=== PATIENT | male | born 1985 | race Caucasian/White ===

== ENCOUNTER 2020-03-04 16:44 | Emergency (ER) | payer SELFPAY ==
[~2020-03-04] VITALS: Ht 180.3 cm; Wt 83.9 kg
[2020-03-04 16:49] VITALS: BP 137/78
--- NOTE | 2020-03-04 16:53 | NUR ---
Patient ambulated to bed 4. RN evaluating patient at bedside.
--- NOTE | 2020-03-04 16:58 | NUR ---
REKHA Soni is evaluating the patient at bedside.
--- NOTE | 2020-03-04 16:59 | NUR ---
PT REFERRED FOR ABCESS TO RT AXILLA X 2 WEEKS AND TREATED WITH FULL COUSE OF ABX OF CEPHALEXIN. 3X4CM ABSCESS WITH ERYTHEMA AND CENTRAL PUS-LIKE DRAINAGE NOTICED UPON INSPECTION. PT REPORTS HAD SPONTANEOUS DRAINAGE OF PURULENT MATERIAL LAST NIGHT WHILE TAKING SHOWER. PT DENIES ANY FEVER, CP, SOB, OR COUGH AT THIS TIME; PATIENT STATES PAIN OF 0/10 AT THIS TIME; VSS; PATIENT POSITIONED FOR COMFORT; HOB ELEVATED; BEDRAILS UP X1; BED DOWN. ER MD MADE AWARE OF PT STATUS.
[2020-03-04] MEDS ORDERED: LIDOCAINE MPF 1% 10 MG/ML VIAL INJ ONE (17:05)
--- NOTE | 2020-03-04 17:22 | NUR ---
MAYCOL DA SILVA IS IMPLEMENTING I&D AT BEDSIDE.
[2020-03-04 17:30] VITALS: BP 128/71
== END 2020-03-04 17:30 | disposition home or self-care (01) ==
LOC: MED 16:44
DX: L02.411 Cutaneous abscess of right axilla (principal); Z88.2 Allergy status to sulfonamides
CPT/HCPCS: 10060; 99283; J2001